=== PATIENT | female | born 1995 | race Caucasian/White ===

== ENCOUNTER 2016-10-27 08:53 | Emergency (ER) | payer OTHER ==
[2016-10-27 08:54] VITALS: BMI 21.9
[2016-10-27 09:14] VITALS: RESP 18; TEMP 98.3
--- NOTE | 2016-10-27 09:23 | C.PDOC ---
History Of Present Illness 21 yr old female presents to the ER with complaints of right ear pain for the past 2 days. Patient states now she has developed pain to the right side of face and right side of neck. Patient denies fever, ear discharge, vomiting, headache, weakness or numbness. Time Seen by Provider: 10/27/16 09:03 Chief Complaint (Nursing): ENT Problem History Per: Patient History/Exam Limitations: None Onset/Duration Of Symptoms: Days (2) Current Symptoms Are (Timing): Still Present Past Medical History Reviewed: Historical Data, Nursing Documentation, Vital Signs Vital Signs: Last Vital Signs Temp 98.3 F 10/27/16 09:09 Pulse 72 10/27/16 09:51 Resp 18 10/27/16 09:51 BP 100/62 10/27/16 09:51 Pulse Ox 97 10/27/16 12:58 - Medical History PMH: No Chronic Diseases Surgical History: Cholecystectomy - [facility] Procedures DILATION OF COMMON BILE DUCT, ENDO (02/09/16) EXTIRPATION OF MATTER FROM COMMON BILE DUCT, ENDO (02/09/16) LOW CERVICAL (02/13/14) RESECTION OF GALLBLADDER, PERCUTANEOUS ENDOSCOPIC APPROACH (02/09/16) Family History: States: Unknown Family Hx - Social History Hx Tobacco Use: No Hx Alcohol Use: No Hx Substance Use: No Review Of Systems Except As Marked, All Systems Reviewed And Found Negative. Constitutional: Positive for: Other ((+) Pain to the right side of face). Negative for: Fever ENT: Positive for: Ear Pain (Right ). Negative for: Ear Discharge Gastrointestinal: Negative for: Vomiting Musculoskeletal: Positive for: Neck Pain (Right side neck pain ) Neurological: Negative for: Weakness, Numbness, Headache Physical Exam - Physical Exam Appears: Well, Non-toxic, No Acute Distress Skin: Warm, Dry, No Rash Head: Atraumatic, Normacephalic Ear(s): Left: Normal, Right: Other (Red and bulging ) Oral Mucosa: Moist Throat: Normal, No Erythema, No Exudate, No Drooling Neck: Normal, Normal ROM, Supple Chest: Symmetrical, No Tenderness Cardiovascular: Rhythm Regular, No Murmur Respiratory: Normal Breath Sounds, No Rales, No Rhonchi, No Stridor, No Wheezing Extremity: Normal ROM, No Swelling Neurological/Psych: Oriented x3, Normal Speech, Normal Motor ED Course And Treatment O2 Sat by Pulse Oximetry: 97 Medical Decision Making Medical Decision Making: S & S c/w OM plan abx nsaisd time Disposition Counseled Patient/Family Regarding: Diagnosis, Need For Followup - Disposition Referrals: [facility] [Outside] Disposition: HOME/ ROUTINE Disposition Time: 09:24 Condition: GOOD Prescriptions: Amoxicillin [Amoxil 500 mg Cap] 1 cap PO TID #21 cap Naproxen [Naprosyn] 1 tab PO BID PRN #25 tab PRN Reason: Pain Instructions: Otitis Media (ED) Forms: Work Excuse Print Language: MALTESE - Clinical Impression Clinical Impression: Otitis media - Scribe Statement The provider has reviewed the documentation as recorded by the Nadir Raymond Provider Attestation: All medical record entries made by the Nadir were at my direction and personally dictated by me. I have reviewed the chart and agree that the record accurately reflects my personal performance of the history, physical exam, medical decision making, and the department course for this patient. I have also personally directed, reviewed, and agree with the discharge instructions and disposition.
[2016-10-27 09:52] VITALS: BP 100/62; PULSE 72
[2016-10-27 12:57] VITALS: O2SAT 97
== END 2016-10-27 09:57 | disposition home or self-care (01) ==
LOC: C.ER 08:53
DX: H66.91 Otitis media, unspecified, right ear (principal)
CPT/HCPCS: 96372; 99283; J1885

== ENCOUNTER 2017-01-24 19:51 | Emergency (ER) | payer OTHER ==
[2017-01-24 19:51] VITALS: BMI 21.9
[2017-01-24 19:59] VITALS: BP 102/62; PULSE 98; RESP 16; TEMP 98.6; O2SAT 98
[2017-01-24] MEDS ORDERED: guaiFENesin DM 100 mg-10 mg/5 ml UD PO STA (20:15)
--- NOTE | 2017-01-24 20:32 | C.PDOC ---
History Of Present Illness The patient, a 21 y/o female, presents to the ED for evaluation of cough, sore throat, nasal congestion, and bilateral ear fullness which began around 3 days ago. Patient has not taken any medicine for her symptoms. Patient notes her child is also sick with same symptoms for 1 week and is also being seen in the ED. She denies fever, chills. Time Seen by Provider: 01/24/17 20:02 Chief Complaint (Nursing): ENT Problem History Per: Patient History/Exam Limitations: no limitations Onset/Duration Of Symptoms: Days (3) Current Symptoms Are (Timing): Still Present Location Of Pain: Ear(s), Throat Sick Contacts (Context): Family Member(s) (child ) Associated Symptoms: Sore Throat, Cough, Nasal Congestion. denies: Fever, Chills Ear Symptoms: Bilateral: Ear Fullness Additional History Per: Patient Past Medical History Reviewed: Historical Data, Nursing Documentation, Vital Signs Vital Signs: Last Vital Signs Temp 98.6 F 01/24/17 19:56 Pulse 98 H 01/24/17 19:56 Resp 16 01/24/17 19:56 BP 102/62 01/24/17 19:56 Pulse Ox 98 01/24/17 20:39 - Medical History PMH: No Chronic Diseases Surgical History: Cholecystectomy - [facility] Procedures DILATION OF COMMON BILE DUCT, ENDO (02/09/16) EXTIRPATION OF MATTER FROM COMMON BILE DUCT, ENDO (02/09/16) LOW CERVICAL (02/13/14) RESECTION OF GALLBLADDER, PERCUTANEOUS ENDOSCOPIC APPROACH (02/09/16) Family History: States: Unknown Family Hx - Social History Hx Tobacco Use: No Hx Alcohol Use: No Hx Substance Use: No - Immunization History Hx Tetanus Toxoid Vaccination: No Hx Influenza Vaccination: No Hx Pneumococcal Vaccination: No Review Of Systems Constitutional: Negative for: Fever, Chills ENT: Positive for: Nose Congestion, Throat Pain, Other (+bilateral ear fullness ) Respiratory: Positive for: Cough Physical Exam - Physical Exam Appears: Non-toxic, No Acute Distress Skin: Normal Color, Warm, Dry Head: Atraumatic, Normacephalic Eye(s): bilateral: Normal Inspection Ear(s): Bilateral: Normal Nose: Normal, No Discharge Oral Mucosa: Moist Throat: Normal, No Erythema, No Exudate Neck: Supple Chest: Symmetrical, No Deformity, No Tenderness Cardiovascular: Rhythm Regular, No Murmur Respiratory: Normal Breath Sounds, No Rales, No Rhonchi, No Wheezing Extremity: Normal ROM, Capillary Refill (less than 2 seconds) Neurological/Psych: Normal Speech, Normal Cognition Gait: Steady ED Course And Treatment O2 Sat by Pulse Oximetry: 98 (on RA) Pulse Ox Interpretation: Normal Medical Decision Making Medical Decision Making: Impression: 21 y/o female with cough, sore throat, nasal congestion, bilateral ear fullness Plan: * Robitussin DM PO * reassess and disposition Progress: Patient received Robitussin PO. On reassessment, patient is resting comfortably , showing no signs of distress, and remains afebrile. Patient is stable for discharge with Rx and is advised to follow up with her PMD within 1-2 days for further evaluation. Disposition Counseled Patient/Family Regarding: Diagnosis, Need For Followup, Rx Given - Disposition Referrals: [facility] [Outside] [facility] [Outside] Disposition: HOME/ ROUTINE Disposition Time: 20:30 Condition: STABLE Additional Instructions: Tiene keshawn infeccin viral de las vas respiratorias superiores. Administre Tylenol o Motrin alternando cada 4-6 horas para la Fiebre 100.4F o superior. Administre medicamentos para la tos segn sea necesario. 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 - Scribe Statement The provider has reviewed the documentation as recorded by the Scribe (Teetee Doty) All medical record entries made by the Scribe were at my direction and personally dictated by me. I have reviewed the chart and agree that the record accurately reflects my personal performance of the history, physical exam, medical decision making, and the department course for this patient. I have also personally directed, reviewed, and agree with the discharge instructions and disposition.
== END 2017-01-24 20:38 | disposition home or self-care (01) ==
LOC: C.ER 19:51
DX: J06.9 Acute upper respiratory infection, unspecified (principal)

== ENCOUNTER 2017-02-25 21:04 | Emergency (ER) | payer SELFPAY ==
[2017-02-25 21:04] VITALS: BMI 21.9
[2017-02-25 21:24] VITALS: BP 99/66; PULSE 60; RESP 18; TEMP 97.7; O2SAT 99
--- NOTE | 2017-02-25 21:45 | C.PDOC ---
History Of Present Illness 22-year-old female presents to the ED for evaluation of urinary frequency which began around 1 week ago. Patient also notes she developed right-sided back pain and dysuria over the past 2 days. Patient found no relief after taking Tylenol. Patient denies fever, chills, vaginal bleeding, or vaginal discharge. Time Seen by Provider: 02/25/17 21:28 Chief Complaint (Nursing): Back Pain History Per: Patient History/Exam Limitations: no limitations Onset/Duration Of Symptoms: Days (1 week ) Current Symptoms Are (Timing): Still Present Quality Of Discomfort: "Pain" Associated Symptoms: Urinary Symptoms (urinary frequency, dysuria ). denies: Fever, Chills Alleviating Factors: None Additional History Per: Patient Abnormal Vaginal Bleeding: No Past Medical History Reviewed: Historical Data, Nursing Documentation, Vital Signs Vital Signs: Last Vital Signs Temp 97.7 F 02/25/17 21:20 Pulse 60 02/25/17 21:20 Resp 18 02/25/17 21:20 BP 99/66 L 02/25/17 21:20 Pulse Ox 99 02/25/17 22:18 - Medical History PMH: No Chronic Diseases Surgical History: Cholecystectomy - [facility] Procedures DILATION OF COMMON BILE DUCT, ENDO (02/09/16) EXTIRPATION OF MATTER FROM COMMON BILE DUCT, ENDO (02/09/16) LOW CERVICAL (02/13/14) RESECTION OF GALLBLADDER, PERCUTANEOUS ENDOSCOPIC APPROACH (02/09/16) Family History: States: Unknown Family Hx - Social History Hx Tobacco Use: No Hx Alcohol Use: No Hx Substance Use: No - Immunization History Hx Tetanus Toxoid Vaccination: No Hx Influenza Vaccination: No Hx Pneumococcal Vaccination: No Review Of Systems Constitutional: Negative for: Fever, Chills Genitourinary: Positive for: Dysuria, Frequency. Negative for: Vaginal Discharge, Vaginal Bleeding Musculoskeletal: Positive for: Back Pain (right-sided) Physical Exam - Physical Exam Appears: Non-toxic, No Acute Distress Skin: Normal Color, Warm, Dry Eye(s): bilateral: Normal Inspection Oral Mucosa: Moist Neck: Supple Chest: Symmetrical Cardiovascular: Rhythm Regular Respiratory: Normal Breath Sounds Gastrointestinal/Abdominal: Tenderness (suprapubic ), No Guarding, No Rebound Back: Normal Inspection, No CVA Tenderness Extremity: Normal ROM, Capillary Refill (less than 2 seconds ) Neurological/Psych: Oriented x3, Normal Speech, Normal Cognition Gait: Steady ED Course And Treatment O2 Sat by Pulse Oximetry: 99 (on RA) Pulse Ox Interpretation: Normal Medical Decision Making Medical Decision Making: Impression: 22-year-old female with urinary frequency, dysuria, and right-sided back pain Plan: * Urinalysis Progress: UA ordered and reviewed, negative. pelvic exam performed: PELVIC: Normal external genitalia. (+) white thin vaginal discharge, no fishy odor, (-) pain on cervical motion. (-) adnexal mass or tenderness. 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 - Scribe Statement The provider has reviewed the documentation as recorded by the Scribe (Teetee Doty) All medical record entries made by the Scribe were at my direction and personally dictated by me. I have reviewed the chart and agree that the record accurately reflects my personal performance of the history, physical exam, medical decision making, and the department course for this patient. I have also personally directed, reviewed, and agree with the discharge instructions and disposition.
[2017-02-25 22:01] LABS: RBC URINE < 1 /hpf (0-3); URINE BACTERIA RARE (<OCC); URINE BILIRUBIN NEGATIVE (NEGATIVE); URINE BLOOD NEGATIVE (NEGATIVE); URINE COLOR Amber (YELLOW); URINE GLUCOSE (UA) NORMAL (Normal); URINE KETONE NEGATIVE (NEGATIVE); URINE LEUKOCYTE ESTERASE NEG Leu/uL (Negative); URINE PROTEIN NEGATIVE (NEGATIVE); WBC URINE 1 /hpf (0-5)
== END 2017-02-25 22:24 | disposition home or self-care (01) ==
LOC: C.ER 21:04
DX: N76.0 Acute vaginitis (principal)

== ENCOUNTER 2017-10-17 23:05 | Emergency (ER) | payer OTHER, SELFPAY ==
[2017-10-17 23:05] VITALS: BMI 21.9
[2017-10-17] MEDS ORDERED: Sodium Chloride 0.9% 1,000 ML IV ONE (23:28)
--- NOTE | 2017-10-17 23:28 | C.PDOC ---
History Of Present Illness Patient who is 6 weeks . P:1, presents to the ER with a complaint of increased vaginal bleeding, associated with mild abdominal cramping. Denies fever or chills. Time Seen by Provider: 10/17/17 23:27 Chief Complaint (Nursing): Abdominal Pain History Per: Patient History/Exam Limitations: no limitations Onset/Duration Of Symptoms: Hrs Current Symptoms Are (Timing): Still Present Severity: Moderate Pain Scale Rating Of: 4 Location Of Pain/Discomfort: Diffuse Radiation Of Pain To:: None Quality Of Discomfort: Cramping Associated Symptoms: denies: Fever, Chills Exacerbating Factors: None Alleviating Factors: None Recent travel outside of the [place]: No Abnormal Vaginal Bleeding: Yes Past Medical History Reviewed: Historical Data, Nursing Documentation, Vital Signs Vital Signs: Last Vital Signs Temp 98.2 F 10/18/17 00:48 Pulse 64 10/18/17 00:48 Resp 22 10/18/17 00:48 BP 89/51 L 10/18/17 00:48 Pulse Ox 100 10/18/17 00:48 Surgical History: Cholecystectomy - [facility] Procedures DILATION OF COMMON BILE DUCT, ENDO (02/09/16) EXTIRPATION OF MATTER FROM COMMON BILE DUCT, ENDO (02/09/16) LOW CERVICAL (02/13/14) RESECTION OF GALLBLADDER, PERCUTANEOUS ENDOSCOPIC APPROACH (02/09/16) Family History: States: No Known Family Hx - Social History Hx Tobacco Use: No Hx Alcohol Use: No Hx Substance Use: No - Immunization History Hx Tetanus Toxoid Vaccination: No Hx Influenza Vaccination: No Hx Pneumococcal Vaccination: No Review Of Systems Constitutional: Negative for: Fever, Chills Cardiovascular: Negative for: Light Headedness Gastrointestinal: Positive for: Abdominal Pain Genitourinary: Positive for: Vaginal Bleeding Neurological: Negative for: Dizziness Physical Exam - Physical Exam Appears: Non-toxic Skin: Warm, Dry Head: Normacephalic Oral Mucosa: Moist Chest: Symmetrical, No Tenderness Cardiovascular: Rhythm Regular Respiratory: No Rales, No Rhonchi, No Wheezing Gastrointestinal/Abdominal: Soft, Tenderness (Mild suprapubic), No Guarding, No Rebound Neurological/Psych: Oriented x3 ED Course And Treatment - Laboratory Results Result Diagrams: 10/17/17 23:46 10/17/17 23:46 O2 Sat by Pulse Oximetry: 100 (Room air) Pulse Ox Interpretation: Normal Progress Note: Blood work and urinalysis ordered. IV fluids administered. Reevaluation Time: 02:24 Reassessment Condition: Improved Disposition Counseled Patient/Family Regarding: Studies Performed, Diagnosis, Need For Followup - Disposition Referrals: [facility] [Outside] [facility] [Outside] Disposition: HOME/ ROUTINE Disposition Time: 23:28 Condition: FAIR Instructions: Threatened Miscarriage (DC) Forms: [employer] (Luxembourger) Print Language: JAPANESE - Clinical Impression Clinical Impression: Threatened - Scribe Statement The provider has reviewed the documentation as recorded by the Scribe Ravi Walden All medical record entries made by the Scribe were at my direction and personally dictated by me. I have reviewed the chart and agree that the record accurately reflects my personal performance of the history, physical exam, medical decision making, and the department course for this patient. I have also personally directed, reviewed, and agree with the discharge instructions and disposition.
[2017-10-17 23:37] LABS: HCG,QUALITATIVE URINE POSITIVE (NEGATIVE)
[2017-10-17 23:38] LABS: SQUAMOUS EPITHIAL 5 /hpf (0-5); URINE BACTERIA OCC (<OCC); URINE BILIRUBIN NEGATIVE (NEGATIVE); URINE BLOOD NEGATIVE (NEGATIVE); URINE CLARITY Clear (Clear); URINE COLOR Yellow (YELLOW); URINE GLUCOSE (UA) NORMAL (Normal); URINE LEUKOCYTE ESTERASE NEG Leu/uL (Negative); URINE PROTEIN NEGATIVE (NEGATIVE); URINE UROBILINOGEN NORMAL mg/dL (0.2-1.0)
[2017-10-17] MEDS ORDERED: Sodium Chloride 0.9% 1,000 ML ONE (23:47)
[2017-10-17 23:50] LABS: BASO % 0.4 % (0.0-2.0); EOS # 0.1 K/uL (0.0-0.7); EOS % 0.9 % (0.0-4.0); HEMOGLOBIN 12.5 g/dL (11.0-16.0); LYMPH # 2.1 K/uL (1.0-4.3); MEAN CELL VOLUME 89.8 fL (81.0-99.0); MEAN CORPUSCULAR HEMOGLOBIN 30.9 pg (27.0-31.0); MEAN CORPUSCULAR HGB CONC 34.4 g/dL (33.0-37.0); MEAN PLATELET VOLUME 10.2 fL (7.2-11.7); MONO # 0.5 K/uL (0.0-0.8); MONO % 7.6 % (0.0-10.0); NEUT # 4.5 K/uL (1.8-7.0); NEUT % 62.1 % (50.0-75.0); RBC 4.04 Mil/uL (3.80-5.20); RED CELL DISTRIBUTION WIDTH 13.2 % (11.5-14.5); WHITE BLOOD COUNT 7.2 K/uL (4.8-10.8)
[2017-10-17 23:58] LABS: INR 1.1; PROTHROMBIN TIME 11.9 SECONDS (9.7-12.2)
[2017-10-18 00:03] LABS: ALB/GLOB RATIO 1.1 (1.0-2.1); ALBUMIN 4.1 g/dL (3.5-5.0); ALT/SGPT 30 U/L (9-52); AST/SGOT 20 U/L (14-36); BLOOD UREA NITROGEN 10 mg/dL (7-17); GFR AFRICAN-AMERICAN > 60; GFR NON-AFRICAN AMERICAN > 60
--- NOTE | 2017-10-18 02:19 | US ---
EXAM: US First Trimester, Transabdominal US , Transvaginal CLINICAL HISTORY: 22 years old, female; Signs and symptoms; Lmp or gestational age (in weeks): 3-18-18; Other: Vag bleed; ; Prior surgery; Surgery date: 6+ months; Surgery type: C- section; Additional info: Vag bleed, TECHNIQUE: Real-time transabdominal and transvaginal obstetrical ultrasound of the maternal pelvis and a first trimester with image documentation. Transvaginal imaging was used for better evaluation of the fetus and adnexa. COMPARISON: No relevant prior studies available. FINDINGS: Gestation: Single live intrauterine gestation. heart rate of 146 beats per minute. [place]-rump length of 1.0 cm, correlating with gestational age of 7 weeks 1 day. Uterus/cervix: No subchorionic hemorrhage. Closed cervix. Ovaries: RIGHT ovary: 1.9 x 2.4 x 2.4 cm anechoic lesion. LEFT ovary: Normal. No adnexal masses. Free fluid: Small free fluid within pelvis. Vasculature: Prominent vessels within pelvis. IMPRESSION: 1. Single live intrauterine gestation. 2. RIGHT ovarian cyst. 3. Incidental/non-acute findings are described above.
[2017-10-18 02:41] VITALS: BP 95/59; PULSE 66; RESP 18; TEMP 98.1; O2SAT 99
== END 2017-10-18 02:50 | disposition home or self-care (01) ==
LOC: C.ER 23:05
DX: O20.0 Threatened abortion (principal); Z3A.01 Less than 8 weeks gestation of pregnancy

== ENCOUNTER 2017-10-21 11:10 | Emergency (ER) | payer SELFPAY ==
[2017-10-21 11:37] VITALS: BMI 25.0
[2017-10-21 11:55] VITALS: RESP 18; O2SAT 100
--- NOTE | 2017-10-21 12:42 | C.PDOC ---
History Of Present Illness 22 y/o female currently 7 weeks presents to ED with complaints of upper abdominal pain associated with diarrhea. Patient states she has pain and feels nauseous every time she eats. Patient was seen at ED 3 days ago and has not recently f.u with clinic yet. Patient denies fever, chills, vomiting, vaginal bleeding, dysuria or any other complaints at this time. Time Seen by Provider: 10/21/17 11:43 Chief Complaint (Nursing): Abdominal Pain History Per: Patient History/Exam Limitations: no limitations Onset/Duration Of Symptoms: Days Current Symptoms Are (Timing): Still Present Past Medical History Reviewed: Historical Data, Nursing Documentation, Vital Signs Vital Signs: Last Vital Signs Temp 98.6 F 10/21/17 13:35 Pulse 63 10/21/17 13:35 Resp 18 10/21/17 13:35 BP 93/57 L 10/21/17 13:35 Pulse Ox 100 10/21/17 13:35 - Medical History PMH: No Chronic Diseases Surgical History: Cholecystectomy - [facility] Procedures DILATION OF COMMON BILE DUCT, ENDO (02/09/16) EXTIRPATION OF MATTER FROM COMMON BILE DUCT, ENDO (02/09/16) LOW CERVICAL (02/13/14) RESECTION OF GALLBLADDER, PERCUTANEOUS ENDOSCOPIC APPROACH (02/09/16) Family History: States: No Known Family Hx - Social History Hx Tobacco Use: No Hx Alcohol Use: No Hx Substance Use: No - Immunization History Hx Tetanus Toxoid Vaccination: No Hx Influenza Vaccination: No Hx Pneumococcal Vaccination: No Review Of Systems Constitutional: Negative for: Fever, Chills Cardiovascular: Negative for: Chest Pain Gastrointestinal: Positive for: Nausea, Abdominal Pain, Diarrhea Genitourinary: Negative for: Dysuria, Vaginal Bleeding Skin: Negative for: Rash Physical Exam - Physical Exam Appears: Non-toxic, No Acute Distress Skin: Warm, Dry, No Rash Head: Atraumatic, Normacephalic Oral Mucosa: Moist Neck: Normal ROM, Supple Cardiovascular: Rhythm Regular Respiratory: Normal Breath Sounds, No Rales, No Rhonchi, No Wheezing Gastrointestinal/Abdominal: Soft, No Tenderness, No Guarding, No Rebound Back: No CVA Tenderness, No Vertebral Tenderness Extremity: Normal ROM, Capillary Refill (<2 seconds) Neurological/Psych: Oriented x3, Normal Speech, Normal Cognition ED Course And Treatment O2 Sat by Pulse Oximetry: 100 (RA) Pulse Ox Interpretation: Normal Medical Decision Making Medical Decision Making: Patient with upper abdominal pain after eating or drinking water and is . She was seen in ED 3 days ago had complete workup labs and US , which showed IUP. Patient is nontender and in no distress, and denies any bleeding thus no indication to repeat US. Ordered UA and treated patient with Tylenol and Pepcid. UA shows UTI. Will treat with Macrobid. Patient instructed to finish course of antibiotics and to follow up in the clinic Disposition Counseled Patient/Family Regarding: Diagnosis, Need For Followup, Rx Given - Disposition Referrals: [facility] [Outside] [facility] [Outside] [facility] [Outside] Disposition: HOME/ ROUTINE Disposition Time: 13:09 Condition: STABLE Additional Instructions: Take antibiotic twice daily and be sure to finish taking all of antibiotic. Drink plenty of fluids. Follow up with the clinic in 2-5 days for further evaluation. 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 - Scribe Statement The provider has reviewed the documentation as recorded by the Jamesibmer Walton All medical record entries made by the Jamesibmer were at my direction and personally dictated by me. I have reviewed the chart and agree that the record accurately reflects my personal performance of the history, physical exam, medical decision making, and the department course for this patient. I have also personally directed, reviewed, and agree with the discharge instructions and disposition.
[2017-10-21 12:59] LABS: SQUAMOUS EPITHIAL 8 /hpf (0-5); URINE BACTERIA OCC (<OCC); URINE BILIRUBIN NEGATIVE (NEGATIVE); URINE BLOOD NEGATIVE (NEGATIVE); URINE CLARITY Hazy (Clear); URINE COLOR Yellow (YELLOW); URINE GLUCOSE (UA) 1+ mg/dL (Normal); URINE LEUKOCYTE ESTERASE NEG Leu/uL (Negative); URINE PROTEIN NEGATIVE (NEGATIVE); URINE UROBILINOGEN NORMAL mg/dL (0.2-1.0)
[2017-10-21 13:36] VITALS: BP 93/57; PULSE 63; TEMP 98.6
== END 2017-10-21 13:40 | disposition home or self-care (01) ==
LOC: C.ER 11:10
DX: O23.41 Unspecified infection of urinary tract in pregnancy, first trimester (principal); Z3A.01 Less than 8 weeks gestation of pregnancy